=== PATIENT | male | born 2000 | race Hispanic/Latino ===

== ENCOUNTER 2021-09-17 12:11 | Observation (INO) | payer OTHER ==
[~2021-09-17] VITALS: Ht 165.1 cm; Wt 75.0 kg
[2021-09-17 14:13] LABS: HEMATOCRIT 46.1 % (42.0-52.0); HEMOGLOBIN 15.9 g/dl (13.5-17.5); MEAN CORPUSCULAR HEMOGLOBIN 29.8 pg (27.0-33.0); MEAN CORPUSCULAR HGB CONC 34.5 g/dl (32.0-36.5); MEAN CORPUSCULAR VOLUME 86.5 fl (80.0-96.0); PLATELET COUNT, AUTOMATED 223 10^3/uL (150-450); RED BLOOD COUNT 5.33 10^6/uL (4.30-6.10); WHITE BLOOD COUNT 9.4 10^3/uL (4.0-10.0)
[2021-09-17 14:46] LABS: AMPHETAMINES LEVEL URINE NEGATIVE (NEGATIVE); BARBITURATES URINE NEGATIVE (NEGATIVE); BENZODIAZEPINES URINE NEGATIVE (NEGATIVE); CANNABINOIDS URINE NEGATIVE (NEGATIVE); COCAINE METABOLITE URINE NEGATIVE (NEGATIVE); METHADONE URINE NEGATIVE (NEGATIVE); OPIATES URINE NEGATIVE (NEGATIVE); PHENCYCLIDINE URINE NEGATIVE (NEGATIVE)
[2021-09-17 14:57] LABS: ACETAMINOPHEN LEVEL < 2.0 UG/ML (10.0-30.0); ALBUMIN 4.1 GM/DL (3.2-5.2); ALT/SGPT 42 U/L (12-78); BILIRUBIN,DIRECT 0.2 MG/DL (0.0-0.2); BLOOD UREA NITROGEN 14 MG/DL (7-18); CALCIUM LEVEL 9.5 MG/DL (8.5-10.1); CARBON DIOXIDE LEVEL 30 MEQ/L (21-32); CHLORIDE LEVEL 105 MEQ/L (98-107); CREATININE FOR GFR 1.13 MG/DL (0.70-1.30); ETHYL ALCOHOL (ETHANOL) < 0.003 % (0.000-0.010); GLUCOSE, FASTING 93 MG/DL (70-100); POTASSIUM SERUM 4.3 MEQ/L (3.5-5.1); SALICYLATE LEVEL < 1.7 MG/DL (5.0-30.0); SODIUM LEVEL 137 MEQ/L (136-145); TOTAL PROTEIN 7.5 GM/DL (6.4-8.2)
[2021-09-17 18:11] LABS: RSV AMPLIFICATION NEGATIVE (NEGATIVE)
[2021-09-17] MEDS ORDERED: ONDANSETRON 4MG 2ML VIAL IV PRN (19:00)
[2021-09-17 19:15] LABS: HEMOGLOBIN 15.7 g/dl (13.5-17.5); MEAN CORPUSCULAR HEMOGLOBIN 29.5 pg (27.0-33.0); MEAN CORPUSCULAR HGB CONC 34.1 g/dl (32.0-36.5); MEAN CORPUSCULAR VOLUME 86.5 fl (80.0-96.0); PLATELET COUNT, AUTOMATED 214 10^3/uL (150-450); RED BLOOD COUNT 5.32 10^6/uL (4.30-6.10); WHITE BLOOD COUNT 8.2 10^3/uL (4.0-10.0)
[2021-09-17 19:53] LABS: BLOOD UREA NITROGEN 14 MG/DL (7-18); CALCIUM LEVEL 9.3 MG/DL (8.5-10.1); CARBON DIOXIDE LEVEL 28 MEQ/L (21-32); CHLORIDE LEVEL 106 MEQ/L (98-107); CREATININE FOR GFR 1.14 MG/DL (0.70-1.30); GLUCOSE, FASTING 80 MG/DL (70-100); POTASSIUM SERUM 4.5 MEQ/L (3.5-5.1); SODIUM LEVEL 140 MEQ/L (136-145)
[2021-09-17 22:12] VITALS: BP 125/40
[2021-09-17] MEDS: ACETAMINOPHEN TAB 650MG DOSE (2X325MG) PO PRN (23:14)
[2021-09-18 05:41] VITALS: BP 104/68
[2021-09-18] MEDS: ACETAMINOPHEN TAB 650MG DOSE (2X325MG) PO PRN ×2 (06:04→13:03)
[2021-09-18 14:00] VITALS: BP 120/60
[2021-09-18] MEDS: GABAPENTIN 100 MG CAP PO SCH (20:13)
[2021-09-18 20:39] VITALS: BP 134/70
[2021-09-19 05:05] VITALS: BP 127/56
[2021-09-19] MEDS ORDERED: GABA-1171 PO (07:54)
[2021-09-19] MEDS ORDERED: ACET1TAB55 PO (07:54)
[2021-09-19] MEDS: GABAPENTIN 100 MG CAP PO SCH (09:33)
[2021-09-19] MEDS: ACETAMINOPHEN TAB 650MG DOSE (2X325MG) PO PRN ×2 (09:38→16:56)
[2021-09-19 14:00] VITALS: BP 118/64
[2021-09-24 23:07] LABS: VITAMIN B1 LEVEL WHOLE BLOOD 160.9 nmol/L (66.5-200.0)
== END 2021-09-19 17:02 | disposition home or self-care (01) ==
LOC: M ED 12:11 → M ED INP 18:32 → M MSPAV 22:10
PROVIDERS: ADMIT Internal Medicine; ATTEND Internal Medicine
DX: R41.0 Disorientation, unspecified (principal); R51.9 Headache, unspecified; R26.81 Unsteadiness on feet; F41.9 Anxiety disorder, unspecified; S09.90XS Unspecified injury of head, sequela; W50.0XXS Accidental hit or strike by another person, sequela; H53.8 Other visual disturbances; Z87.820 Personal history of traumatic brain injury; Z79.899 Other long term (current) drug therapy
CPT/HCPCS: 36415; 70450; 70551; 71045; 72125; 80048; 80076; 80143; 80307; 82077; 82525; 82607; 84425; 84443; 84484; 85027; 87631; 93005; 96374; 97110; 97161; 97530; 99285; J2405

== ENCOUNTER 2021-10-03 13:56 | Emergency (ER) | payer OTHER ==
[~2021-10-03] VITALS: Ht 165.1 cm; Wt 75.9 kg
[~2021-10-03 13:56] MED LIST: ACET1TAB55 PO; GABA-1171 PO
[2021-10-03 18:34] VITALS: BP 137/80
== END 2021-10-03 18:44 | disposition home or self-care (01) ==
LOC: M ED 13:56
DX: R07.89 Other chest pain (principal); R06.02 Shortness of breath; F41.9 Anxiety disorder, unspecified

== ENCOUNTER 2022-04-01 10:39 | Inpatient (IN) | payer OTHER ==
[~2022-04-01] VITALS: Ht 165.1 cm; Wt 81.9 kg
[2022-04-01 11:37] LABS: HEMATOCRIT 47.4 % (42.0-52.0); MEAN CORPUSCULAR HEMOGLOBIN 28.9 pg (27.0-33.0); MEAN CORPUSCULAR HGB CONC 33.8 g/dl (32.0-36.5); MEAN CORPUSCULAR VOLUME 85.6 fl (80.0-96.0); PLATELET COUNT, AUTOMATED 251 10^3/uL (150-450); RED BLOOD COUNT 5.54 10^6/uL (4.30-6.10); WHITE BLOOD COUNT 11.3 10^3/uL (4.0-10.0)
[2022-04-01 11:56] LABS: AMPHETAMINES LEVEL URINE NEGATIVE (NEGATIVE); BARBITURATES URINE NEGATIVE (NEGATIVE); BENZODIAZEPINES URINE NEGATIVE (NEGATIVE); COCAINE METABOLITE URINE NEGATIVE (NEGATIVE); ETHYL ALCOHOL (ETHANOL) 0.005 % (0.000-0.010); METHADONE URINE NEGATIVE (NEGATIVE); OPIATES URINE NEGATIVE (NEGATIVE); PHENCYCLIDINE URINE NEGATIVE (NEGATIVE)
[2022-04-01 11:57] LABS: SALICYLATE LEVEL < 3.0 MG/DL (<30)
[2022-04-01 11:58] LABS: ACETAMINOPHEN LEVEL < 2.0 UG/ML (10.0-20.0); ALKALINE PHOSPHATASE 83 U/L (46-116); ALT/SGPT 68 U/L (7.0-40); AST/SGOT 52 U/L (<34); BILIRUBIN,DIRECT 0.2 MG/DL (<0.4); BILIRUBIN,TOTAL 0.7 MG/DL (0.3-1.2); BLOOD UREA NITROGEN 16 MG/DL (9-23); CALCIUM LEVEL 9.8 MG/DL (8.5-10.1); CARBON DIOXIDE LEVEL 27 MMOL/L (20-31); CHLORIDE LEVEL 105 MMOL/L (98-107); CREATININE FOR GFR 1.01 MG/DL (0.70-1.30); GLUCOSE, FASTING 93 MG/DL (60-100); POTASSIUM SERUM 4.4 MMOL/L (3.5-5.1); SODIUM LEVEL 141 MMOL/L (136-145); TOTAL PROTEIN 7.2 G/DL (5.7-8.2)
[2022-04-01 11:59] LABS: CANNABINOIDS URINE POSITIVE (NEGATIVE)
[2022-04-01 12:00] LABS: THYROID STIMULATING HORMONE 1.533 uIU/ML (0.48-4.17)
[2022-04-01] MEDS ORDERED: HOME MED LIST COMPLETE! XX SCH (23:35)
[2022-04-02] MEDS ORDERED: ACETAMINOPHEN TAB 650MG DOSE (2X325MG) PO PRN (10:00)
[2022-04-02] MEDS ORDERED: traZODone 50 MG TAB PO PRN (10:00)
[2022-04-02] MEDS ORDERED: MOM 30ML SUSPENSION UDC PO PRN (10:00)
[2022-04-02] MEDS ORDERED: MAALOX 30 ML SUSP *UDC PO PRN (10:00)
[2022-04-03] MEDS: ENOXAPARIN 40MG/0.4ML SYRINGE (J1650 PER 10MG) SC SCH (09:00)
[2022-04-03] MEDS: SERTRALINE HCL 25 MG TABLET PO SCH (12:07)
[2022-04-03 16:11] VITALS: BP 145/84
[2022-04-04 06:35] VITALS: BP 112/56
[2022-04-04] MEDS: ENOXAPARIN 40MG/0.4ML SYRINGE (J1650 PER 10MG) SC SCH (09:00)
[2022-04-04] MEDS: SERTRALINE HCL 25 MG TABLET PO SCH (10:01)
[2022-04-05 06:23] VITALS: BP 109/54
[2022-04-05] MEDS: ENOXAPARIN 40MG/0.4ML SYRINGE (J1650 PER 10MG) SC SCH (09:00)
[2022-04-05] MEDS: SERTRALINE HCL 25 MG TABLET PO SCH (09:00)
[2022-04-05 16:26] VITALS: BP 144/82
[2022-04-06 06:25] VITALS: BP 134/74
[2022-04-06 06:32] VITALS: BP 144/72
[2022-04-06 07:05] LABS: HEMOGLOBIN 15.4 g/dl (13.5-17.5); MEAN CORPUSCULAR HEMOGLOBIN 29.3 pg (27.0-33.0); MEAN CORPUSCULAR HGB CONC 34.2 g/dl (32.0-36.5); MEAN CORPUSCULAR VOLUME 85.7 fl (80.0-96.0); PLATELET COUNT, AUTOMATED 224 10^3/uL (150-450); RED BLOOD COUNT 5.25 10^6/uL (4.30-6.10); WHITE BLOOD COUNT 7.1 10^3/uL (4.0-10.0)
[2022-04-06] MEDS: ENOXAPARIN 40MG/0.4ML SYRINGE (J1650 PER 10MG) SC SCH (09:00)
[2022-04-06] MEDS: SERTRALINE HCL 50 MG TAB PO SCH (09:49)
[2022-04-06 16:42] VITALS: BP 134/70
[2022-04-07 06:55] VITALS: BP 145/79
[2022-04-07] MEDS: ENOXAPARIN 40MG/0.4ML SYRINGE (J1650 PER 10MG) SC SCH (09:00)
[2022-04-07] MEDS: SERTRALINE HCL 50 MG TAB PO SCH (10:09)
[2022-04-07 16:15] VITALS: BP 136/70
[2022-04-08 06:17] VITALS: BP 128/66
[2022-04-08] MEDS: ENOXAPARIN 40MG/0.4ML SYRINGE (J1650 PER 10MG) SC SCH (09:00)
[2022-04-08] MEDS: SERTRALINE HCL 50 MG TAB PO SCH (09:50)
[2022-04-09 06:02] VITALS: BP 127/68
[2022-04-09 06:45] LABS: HEMATOCRIT 46.3 % (42.0-52.0); HEMOGLOBIN 15.9 g/dl (13.5-17.5); MEAN CORPUSCULAR HEMOGLOBIN 29.6 pg (27.0-33.0); MEAN CORPUSCULAR HGB CONC 34.3 g/dl (32.0-36.5); MEAN CORPUSCULAR VOLUME 86.1 fl (80.0-96.0); PLATELET COUNT, AUTOMATED 215 10^3/uL (150-450); RED BLOOD COUNT 5.38 10^6/uL (4.30-6.10); WHITE BLOOD COUNT 7.2 10^3/uL (4.0-10.0)
[2022-04-09] MEDS: ENOXAPARIN 40MG/0.4ML SYRINGE (J1650 PER 10MG) SC SCH (09:00)
[2022-04-09] MEDS: SERTRALINE HCL 50 MG TAB PO SCH (09:47)
[2022-04-09] MEDS ORDERED: SERT50TA29 PO (11:17)
== END 2022-04-09 12:48 | disposition home or self-care (01) | DRG 885 ==
LOC: M ED 10:39 → M ED INP 04-02 09:58 → M PSY 04-02 14:49
PROVIDERS: ADMIT Student in an Organized Health Care Education/Training Program; ATTEND Student in an Organized Health Care Education/Training Program
DX: F32.1 Major depressive disorder, single episode, moderate (principal); U07.1 COVID-19; F43.20 Adjustment disorder, unspecified; F17.290 Nicotine dependence, other tobacco product, uncomplicated; Z63.4 Disappearance and death of family member; Z56.6 Other physical and mental strain related to work; Z91.51 Personal history of suicidal behavior

== ENCOUNTER → 2022-09-11 | Outpatient (REF) ==
[~2022-09-11] MED LIST changes: +SERT50TA29 PO
== END ==
LOC: M PLALAB 09:12
PROVIDERS: ATTEND Internal Medicine
DX: R06.02 Shortness of breath (principal)